=== PATIENT | female | born 1975 | race Caucasian/White ===

== ENCOUNTER → 2017-06-04 | Outpatient (CLI) | payer OTHER ==
[~2017-06-04] MED LIST: CONTRAST GIVEN MC
[2017-06-04] MEDS: IOHEXOL 240 MG/ML 50ML VIAL. PO (11:15)
[2017-06-04] MEDS: IOHEXOL 300 MG/ML 100ML VIAL. IV (11:15)
== END | disposition home or self-care (01) ==
LOC: CT 10:45
DX: K43.2 Incisional hernia without obstruction or gangrene (principal); K57.30 Diverticulosis of large intestine without perforation or abscess without bleeding; K76.0 Fatty (change of) liver, not elsewhere classified; J98.11 Atelectasis; N28.89 Other specified disorders of kidney and ureter; R16.0 Hepatomegaly, not elsewhere classified; Z90.49 Acquired absence of other specified parts of digestive tract; Z98.890 Other specified postprocedural states; Z90.710 Acquired absence of both cervix and uterus
CPT/HCPCS: 74177; Q9966; Q9967

== ENCOUNTER 2018-06-10 17:47 | Observation (INO) | payer OTHER ==
[~2018-06-10] VITALS: Ht 160 cm; Wt 103.1 kg
[~2018-06-10 17:47] MED LIST changes: +ACET325T9 PO; -CONTRAST GIVEN MC; +CYCL5TAB PO; +DOCU-109 PO; +ESOM40CA PO; +GABA800T5 PO; +HYDR-2761 PO; +LAMO100T5 PO; +LISD30CA5 PO; +OXYC1TAB15 PO; +PANT20TA2 PO; +POLY17PO29 PO; +PRAZ2CAP2 PO
[2018-06-10 19:56] LABS: BASO % 1 % (0-3); EOS # 0.1 x10^3/uL (0.0-0.7); EOS % 1 % (0-3); HEMATOCRIT 36.9 % (36.0-47.0); HEMOGLOBIN 12.4 g/dL (12.0-15.5); LYMPH % 33 % (24-48); MEAN CORPUSCULAR HEMOGLOBIN 31 pg (25-35); MEAN CORPUSCULAR HGB CONC 34 g/dL (31-37); MEAN CORPUSCULAR VOLUME 92 fL (79-100); MONO # 0.5 x10^3/uL (0.0-1.1); MONO % 6 % (0-9); NEUT # 5.4 x10^3uL (1.8-7.7); NEUT % 60 % (31-73); PLATELET COUNT 300 x10^3/uL (140-400); RED CELL DISTRIBUTION WIDTH 13.9 % (11.5-14.5); WHITE BLOOD COUNT 9.1 x10^3/uL (4.0-11.0)
[2018-06-10 19:57] LABS: BILIRUBIN,URINE NEGATIVE (NEG); CLARITY,URINE CLEAR; COLOR,URINE YELLOW; NITRITE,URINE POSITIVE (NEG); PH,URINE 6.5; PROTEIN,URINE NEGATIVE (NEG-TRACE)
[2018-06-10] MEDS ORDERED: fentaNYL PF VIAL 100 MCG/2 ML VIAL IV ONE ×2 (20:00→22:30)
[2018-06-10] MEDS ORDERED: ONDANSETRON PF 4 MG/2 ML VIAL. IV ONE (20:00)
[2018-06-10] MEDS ORDERED: IV NORMAL SALINE 1000ML BAG 1,000 ML IV ONE (20:00)
[2018-06-10 20:03] LABS: CALCIUM 8.8 mg/dL (8.5-10.1); CREATININE 0.8 mg/dL (0.6-1.0); GFR 78.7; POTASSIUM 3.8 mmol/L (3.5-5.1)
[2018-06-10 20:09] LABS: ALBUMIN 3.5 g/dL (3.4-5.0); MAGNESIUM 1.9 mg/dL (1.8-2.4); TOTAL BILIRUBIN 0.4 mg/dL (0.2-1.0); TOTAL PROTEIN 6.9 g/dL (6.4-8.2)
[2018-06-10 20:10] LABS: BACTERIA,URINE MANY /HPF (0-FEW); SQUAMOUS EPITHELIAL CELL,UR MOD /LPF
[2018-06-10 20:11] LABS: RBC,URINE OCC /HPF (0-2); WBC,URINE OCC /HPF (0-4)
[2018-06-10] MEDS ORDERED: CONTRAST GIVEN. MC PRN (20:45)
[2018-06-10] MEDS ORDERED: IOHEXOL 300 MG/ML 100ML VIAL. IV ONE (21:00)
--- NOTE | 2018-06-10 21:52 | RAD ---
CT study of the abdomen and pelvis with contrast Clinical indications: Hernia. History of gastric bypass. Possible small bowel obstruction. TECHNIQUE: After IV infusion of 75 cc of Omnipaque 300, helical CT scanning of the abdomen and pelvis was performed. No GI contrast was administered. This may decrease the sensitivity to detect GI tract pathology. PQRS compliance Statement One or more of the following individualized dose reduction techniques were utilized for this study: 1. Automated exposure control 2. Adjustment of the mA and/or kV according to patient size 3. Use of iterative reconstruction technique COMPARISON: June 04, 2017. FINDINGS: The liver and spleen and pancreas are unremarkable. The gallbladder is surgically absent. No extra hepatic biliary ductal dilatation is seen. No adrenal mass is evident. Both kidneys are normal without hydronephrosis or hydroureter. Urinary bladder is not abnormally distended. Uterus is surgically absent. No focal aneurysmal dilatation of the abdominal aorta is seen. No enlarged abdominal or pelvic lymphadenopathy is seen. Sigmoid diverticulosis is seen. There are 2 segmental areas of wall thickening of the sigmoid colon. The appendix is normal. The terminal ileum is unremarkable. No small bowel obstruction is evident. 2 abdominal wall hernias are seen. One is located within the midline superiorly and contains only fat and is not inflamed. It is unchanged in size from the previous study and measures about 8 cm in vertical length. There is a more prominent midline abdominal wall hernia more inferiorly above the level of the umbilicus. This measures 9.9 cm in vertical dimension. It measures 13.0 cm in transverse dimension and measures 5.7 cm in AP dimension. The size of the anterior abdominal wall defect is 3.5 cm vertically and 3.8 cm transversely. This hernia has increased in size. In addition, there is inflammatory change within the hernia sac and wall thickening of the peripheral sac. Findings are consistent with incarceration. No bowel loops are seen extending into the area. No abscess is seen. No free air or free fluid is seen. No lung base consolidation is seen. No lytic process is seen. IMPRESSION: 2 anterior abdominal wall hernias are seen. The more inferior hernia just above the level of the umbilicus of the midline has gotten larger since the previous study and now is inflamed consistent with incarceration. There 2 areas of segmental wall thickening of the sigmoid colon. This has been seen previously and may be secondary to muscle hypertrophy related to sigmoid diverticulosis. Recommend colonoscopy if this has not been performed recently to exclude a neoplastic process in this area. No pericolonic inflammatory change or free fluid or abscess is seen. Therefore there are no CT findings of diverticulitis.. Electronically signed by: Omega Sanchez MD (06/10/2018 9:49 PM) [facility]
--- NOTE | 2018-06-10 22:03 | PHYS DOC ---
Past Medical History Past Medical History: Anxiety, Bipolar, Depression, Endometriosis, Fibromyalgia Additional Past Medical Histor: ADHD, PTSD, HERNIAS Past Surgical History: Cholecystectomy, Hysterectomy, Tonsillectomy Additional Past Surgical Histo: Hernia repair, tummy tuck, FOREHEAD CYST, Alcohol Use: Rarely Drug Use: None Adult General Chief Complaint Chief Complaint: ABDOMINAL PAIN HPI HPI Patient is 42 yo female with hx of several abdominal surgeries who presents with complaint of pain at hernia site. Patient reports she noticed the pain around 2400 the night before when she was using the restroom. She was able to sleep but awoke with persistent pain. She describes the pain as a "burning twisting pain" that is worse with movement. She did not take any pain medication at home. She has not been able to pass gas or BM since the movement at 2400 the night before. Patient's primary care provider is Sri at [facility]. Of note, patient reports that she has had several ventral hernia repairs, and has been advised by at least 3 physicians (including surgeons at [facility]) that she "does not have enough fascia or capillaries" for proper healing of another hernia repair. Patient reports she feels "hopeless" about her hernia because of having had so many surgeons advise against another repair. She also reports that because of the hernia she is inactive and spends most of her time sitting or laying down to avoid worsening her hernia. Patient reports she has an abdominal binder and that although it helps support her hernia it does not improve the pain. Review of Systems Review of Systems Constitutional: Denies fever or chills [] Respiratory: Denies cough or shortness of breath [] Cardiovascular: Denies CP, denies palpitations GI: Denies nausea, vomiting, bloody diarrhea. Admits abdominal pain. Admits being able to pass gas. : Denies dysuria or hematuria [] Musculoskeletal: Denies back pain or joint pain [] Integument: Denies rash or skin lesions [] All other systems were reviewed and found to be within normal limits, except as documented in this note. Current Medications Current Medications Current Medications Medications (Trade) Dose Ordered Sig/Mary Start Time Stop Time Status Last Admin Dose Admin Fentanyl Citrate (Fentanyl 2ml Vial) 50 mcg 1X ONCE 06/10/18 22:30 06/10/18 22:31 DC 06/10/18 22:36 50 MCG Info (CONTRAST GIVEN -- Rx MONITORING) 1 each PRN DAILY PRN 06/10/18 20:45 06/12/18 20:44 Iohexol (Omnipaque 300 Mg/ml) 75 ml 1X ONCE 06/10/18 21:00 06/10/18 21:01 DC 06/10/18 20:53 75 ML Ondansetron HCl (Zofran) 4 mg 1X ONCE 06/10/18 20:00 06/10/18 20:01 DC 06/10/18 20:00 4 MG Sodium Chloride 1,000 ml @ 1,000 mls/hr 1X ONCE 06/10/18 20:00 06/10/18 20:59 DC 06/10/18 20:01 1,000 MLS/HR Allergies Allergies Allergies Coded Allergies Type Severity Reaction Last Updated Verified escitalopram Allergy Intermediate 04/08/17 Yes Physical Exam Physical Exam Constitutional: Well developed, well nourished, no acute distress, non-toxic appearance. [] HENT: Normocephalic, atraumatic Eyes: PERRLA, EOMI Neck: Normal range of motion, no tenderness, supple, no stridor. [] Cardiovascular:Heart rate regular rhythm, no murmur [] Lungs & Thorax: Bilateral breath sounds clear to auscultation [] Abdomen: Bowel sounds normal, soft, several well healed scars present. Midline, soft, reducible hernia present. Skin: Warm, dry, no erythema, no rash. [] Current Patient Data Vital Signs Vital Signs Date Time Temp Pulse Resp B/P (MAP) Pulse Ox O2 Delivery O2 Flow Rate FiO2 06/10/18 22:36 16 98 Room Air 06/10/18 22:30 84 177/114 (135) 06/10/18 18:30 97.8 97.8 Lab Values Laboratory Tests Test 06/10/18 18:55 06/10/18 19:00 Urine Collection Type Unknown Urine Color Yellow Urine Clarity Clear Urine pH 6.5 Urine Specific Henry 1.025 Urine Protein Negative mg/dL (NEG-TRACE) Urine Glucose (UA) Negative mg/dL (NEG) Urine Ketones (Stick) Negative mg/dL (NEG) Urine Blood Negative (NEG) Urine Nitrite Positive (NEG) Urine Bilirubin Negative (NEG) Urine Urobilinogen Dipstick 1.0 mg/dL (0.2 mg/dL) Urine Leukocyte Esterase Negative (NEG) Urine RBC Occ /HPF (0-2) Urine WBC Occ /HPF (0-4) Urine Squamous Epithelial Cells Mod /LPF Urine Bacteria Many /HPF (0-FEW) White Blood Count 9.1 x10^3/uL (4.0-11.0) Red Blood Count 4.00 x10^6/uL (3.50-5.40) Hemoglobin 12.4 g/dL (12.0-15.5) Hematocrit 36.9 % (36.0-47.0) Mean Corpuscular Volume 92 fL (79-100) Mean Corpuscular Hemoglobin 31 pg (25-35) Mean Corpuscular Hemoglobin Concent 34 g/dL (31-37) Red Cell Distribution Width 13.9 % (11.5-14.5) Platelet Count 300 x10^3/uL (140-400) Neutrophils (%) (Auto) 60 % (31-73) Lymphocytes (%) (Auto) 33 % (24-48) Monocytes (%) (Auto) 6 % (0-9) Eosinophils (%) (Auto) 1 % (0-3) Basophils (%) (Auto) 1 % (0-3) Neutrophils # (Auto) 5.4 x10^3uL (1.8-7.7) Lymphocytes # (Auto) 3.0 x10^3/uL (1.0-4.8) Monocytes # (Auto) 0.5 x10^3/uL (0.0-1.1) Eosinophils # (Auto) 0.1 x10^3/uL (0.0-0.7) Basophils # (Auto) 0.0 x10^3/uL (0.0-0.2) Sodium Level 141 mmol/L (136-145) Potassium Level 3.8 mmol/L (3.5-5.1) Chloride Level 105 mmol/L (98-107) Carbon Dioxide Level 26 mmol/L (21-32) Anion Gap 10 (6-14) Blood Urea Nitrogen 14 mg/dL (7-20) Creatinine 0.8 mg/dL (0.6-1.0) Estimated GFR (Cockcroft-Gault) 78.7 BUN/Creatinine Ratio 18 (6-20) Glucose Level 153 mg/dL (70-99) H Calcium Level 8.8 mg/dL (8.5-10.1) Magnesium Level 1.9 mg/dL (1.8-2.4) Total Bilirubin 0.4 mg/dL (0.2-1.0) Aspartate Amino Transferase (AST) 16 U/L (15-37) Alanine Aminotransferase (ALT) 22 U/L (14-59) Alkaline Phosphatase 70 U/L (46-116) Total Protein 6.9 g/dL (6.4-8.2) Albumin 3.5 g/dL (3.4-5.0) Albumin/Globulin Ratio 1.0 (1.0-1.7) Lipase 99 U/L (73-393) Laboratory Tests 06/10/18 19:00 Laboratory Tests 06/10/18 19:00 EKG EKG [] Radiology/Procedures Radiology/Procedures [PROCEDURE: CT ABD PELV W/ IV CONTRST ONLY CT study of the abdomen and pelvis with contrast Clinical indications: Hernia. History of gastric bypass. Possible small bowel obstruction. TECHNIQUE: After IV infusion of 75 cc of Omnipaque 300, helical CT scanning of the abdomen and pelvis was performed. No GI contrast was administered. This may decrease the sensitivity to detect GI tract pathology. PQRS compliance Statement One or more of the following individualized dose reduction techniques were utilized for this study: 1. Automated exposure control 2. Adjustment of the mA and/or kV according to patient size 3. Use of iterative reconstruction technique COMPARISON: June 04, 2017. FINDINGS: The liver and spleen and pancreas are unremarkable. The gallbladder is surgically absent. No extra hepatic biliary ductal dilatation is seen. No adrenal mass is evident. Both kidneys are normal without hydronephrosis or hydroureter. Urinary bladder is not abnormally distended. Uterus is surgically absent. No focal aneurysmal dilatation of the abdominal aorta is seen. No enlarged abdominal or pelvic lymphadenopathy is seen. Sigmoid diverticulosis is seen. There are 2 segmental areas of wall thickening of the sigmoid colon. The appendix is normal. The terminal ileum is unremarkable. No small bowel obstruction is evident. 2 abdominal wall hernias are seen. One is located within the midline superiorly and contains only fat and is not inflamed. It is unchanged in size from the previous study and measures about 8 cm in vertical length. There is a more prominent midline abdominal wall hernia more inferiorly above the level of the umbilicus. This measures 9.9 cm in vertical dimension. It measures 13.0 cm in transverse dimension and measures 5.7 cm in AP dimension. The size of the anterior abdominal wall defect is 3.5 cm vertically and 3.8 cm transversely. This hernia has increased in size. In addition, there is inflammatory change within the hernia sac and wall thickening of the peripheral sac. Findings are consistent with incarceration. No bowel loops are seen extending into the area. No abscess is seen. No free air or free fluid is seen. No lung base consolidation is seen. No lytic process is seen. IMPRESSION: 2 anterior abdominal wall hernias are seen. The more inferior hernia just above the level of the umbilicus of the midline has gotten larger since the previous study and now is inflamed consistent with incarceration. There 2 areas of segmental wall thickening of the sigmoid colon. This has been seen previously and may be secondary to muscle hypertrophy related to sigmoid diverticulosis. Recommend colonoscopy if this has not been performed recently to exclude a neoplastic process in this area. No pericolonic inflammatory change or free fluid or abscess is seen. Therefore there are no CT findings of diverticulitis.. Electronically signed by: Macarena Sanchez MD (06/10/2018 9:49 PM) [facility] DICTATED and SIGNED BY: MACARENA SANCHEZ MD DATE: 06/10/182148 ] Course & Med Decision Making Course & Med Decision Making Patient is a 42 yo female who presents with compliant of abdominal pain and worsening ventral hernia. Patient reports she has had the hernia for at least a year, although she noticed yesterday that she began having pain at the hernia site when she was using the restroom. On physical exam patient's vitals are WNL , with midline, soft, reducible ventral hernia. Patient reports she is very tender to palpation. Labs WNL. CT abdomen pelvis reveals no bowel in hernia, although hernia contains inflamed tissue consistent with incarceration. Discussed with Rogerio (surgery) patient's case and CT scan. Decided to admit patient for pain relief control and surgical evaluation. Patient admitted to hospitalist service for further evaluation. Discussed plan with patient and . Dragon Disclaimer Dragon Disclaimer This electronic medical record was generated, in whole or in part, using a voice recognition dictation system. Departure Departure Impression: Primary Impression: Hernia Disposition: ADMITTED INPATIENT Admitting Physician: Other Condition: STABLE Referrals: ELLEN NAVA MD (PCP) EVELIO BELLO MD Jun 10, 2018 22:03
[2018-06-10] MEDS: IV NORMAL SALINE 1000ML BAG 1,000 ML IV SCH (23:00)
[2018-06-10] MEDS ORDERED: ONDANSETRON PF 4 MG/2 ML VIAL. IV PRN (23:00)
[2018-06-10] MEDS: MORPHINE SULFATE 4 MG/ML VIAL. IV PRN (23:52)
[2018-06-11 00:30] VITALS: BP 154/91
[2018-06-11] MEDS ORDERED: BUSP10TA PO (01:59)
[2018-06-11] MEDS ORDERED: PANT40GR PO (01:59)
--- NOTE | 2018-06-11 02:00 | NUR ---
Pt arrived via wheelchair from ER at 1240, stable, alert x4, reporting no pain. vitals taken, WNL. Will continue to monitor. Medications have been updated under reconcile meds tab
[2018-06-11 03:00] VITALS: BP 158/83
[2018-06-11] MEDS: MORPHINE SULFATE 4 MG/ML VIAL. IV PRN (03:02)
[2018-06-11] MEDS ORDERED: diphenhydrAMINE 50 MG/ML VIAL IVP PRN (04:00)
[2018-06-11] MEDS ORDERED: PROCHLORPERAZINE 10 MG/2 ML VIAL. IV PRN (04:00)
[2018-06-11 05:57] LABS: BASO # 0.1 x10^3/uL (0.0-0.2); BASO % 1 % (0-3); EOS # 0.1 x10^3/uL (0.0-0.7); EOS % 2 % (0-3); HEMATOCRIT 34.2 % (36.0-47.0); HEMOGLOBIN 11.5 g/dL (12.0-15.5); LYMPH # 2.7 x10^3/uL (1.0-4.8); LYMPH % 33 % (24-48); MEAN CORPUSCULAR HEMOGLOBIN 31 pg (25-35); MEAN CORPUSCULAR HGB CONC 34 g/dL (31-37); MEAN CORPUSCULAR VOLUME 92 fL (79-100); MONO # 0.5 x10^3/uL (0.0-1.1); MONO % 6 % (0-9); NEUT # 4.8 x10^3uL (1.8-7.7); NEUT % 59 % (31-73); PLATELET COUNT 252 x10^3/uL (140-400); RED BLOOD COUNT 3.72 x10^6/uL (3.50-5.40); RED CELL DISTRIBUTION WIDTH 13.8 % (11.5-14.5); WHITE BLOOD COUNT 8.1 x10^3/uL (4.0-11.0)
[2018-06-11 07:00] VITALS: BP 125/74
--- NOTE | 2018-06-11 08:45 | PDOC1 ---
History and Physical Date of Admission Date of Admission DATE: 06/11/18 TIME: 08:44 Identification/Chief Complaint Chief Complaint Abdominal pain Source Source: Patient History of Present Illness History of Present Illness Anastasiia is a 42 yo female with PMHx of morbid obesity s/p gastric bypass, fibromyalgia, bipolar disorder with multiple previous abdominal surgeries who presented to the ED last night, 06/10/18 with intractable pain in her long standing ventral incisional hernia that was not reducible in the ED. She had accompanying nausea and could not hold food down, required IV nausea and pain medication initially. She feels better this AM after manual hernia reduction by general surgery, feels back to her baseline. She tells me her (in the recliner) is frustrated, and he does share his frustration with the medical system. 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 Her pain is 3/10 currently and she is asking for diet and to be discharged since her hernia has been manually reduced by surgery. Past Medical History Cardiovascular: No pertinent hx Pulmonary: No pertinent hx GI: Other (Ventral hernia, s/p gastric bypass) Heme/Onc: No pertinent hx Hepatobiliary: No pertinent hx Psych: Bipolar Rheumatologic: Fibromyalgia Infectious disease: No pertinent hx ENT: No pertinent hx Renal/: No pertinent hx Endocrine: No pertinent hx Dermatology: No pertinent hx Past Surgical History Past Surgical History: Hernia Repair, Other (Gastric bypass) Family History Family History: Depression, Hypertension Social History Smoke: No ALCOHOL: none Drugs: None Current Medications Current Medications Current Medications Sodium Chloride 1,000 ml @ 1,000 mls/hr 1X ONCE IV Last administered on at 20:01; Start 06/10/18 at 20:00; Stop 06/10/18 at 20:59; Status DC Ondansetron HCl (Zofran) 4 mg 1X ONCE IV Last administered on 06/10/18at 20:00; Start 06/10/18 at 20:00; Stop 06/10/18 at 20:01; Status DC Fentanyl Citrate (Fentanyl 2ml Vial) 50 mcg 1X ONCE IV Last administered on 06/10/18at 20:00; Start 06/10/18 at 20:00; Stop 06/10/18 at 20:01; Status DC Iohexol (Omnipaque 300 Mg/ml) 75 ml 1X ONCE IV Last administered on 06/10/18at 20:53; Start 06/10/18 at 21:00; Stop 06/10/18 at 21:01; Status DC Info (CONTRAST GIVEN -- Rx MONITORING) 1 each PRN DAILY PRN MC SEE COMMENTS; Start 06/10/18 at 20:45; Stop 06/12/18 at 20:44 Fentanyl Citrate (Fentanyl 2ml Vial) 50 mcg 1X ONCE IV Last administered on 06/10/18at 22:36; Start 06/10/18 at 22:30; Stop 06/10/18 at 22:31; Status DC Ondansetron HCl (Zofran) 4 mg PRN Q8HRS PRN IV NAUSEA/VOMITING Last administered on 06/11/18at 03:05; Start 06/10/18 at 23:00; Stop 06/11/18 at 22:59 Morphine Sulfate (Morphine Sulfate) 4 mg PRN Q2HR PRN IV PAIN Last administered on 06/11/18at 03:02; Start 06/10/18 at 23:00; Stop 06/11/18 at 22:59 Sodium Chloride 1,000 ml @ 100 mls/hr Q10H IV Last administered on 06/10/18at 23 :00; Start 06/10/18 at 23:00; Stop 06/11/18 at 22:59 Prochlorperazine Edisylate (Compazine) 10 mg PRN Q6HRS PRN IV NAUSEA/VOMITING Last administered on 06/11/18at 04:19; Start 06/11/18 at 04:00 Diphenhydramine HCl (Benadryl) 25 mg PRN Q6HRS PRN IVP ITCHING; Start 06/11/18 at 04:00 Influenza Virus Vaccine (Afluria Trivalent [id number] Syringe) 0.5 ml ONCE ONCE VAX IM ; Start 06/11/18 at 12:00; Stop 06/11/18 at 12:01 Active Scripts Active Reported Buspirone Hcl 10 Mg Tablet 7.5 Mg PO BID Protonix (Pantoprazole Sodium) 40 Mg Granpkt.dr 40 Mg PO DAILY Hydrocodone-Apap 5-325 (Hydrocodone Bit/Acetaminophen) 1 Each Tablet 1 Tab PO PRN Q6HRS PRN Colace (Docusate Sodium) 100 Mg Capsule 1 Cap PO BID Cyclobenzaprine Hcl 5 Mg Tablet 1 Tab PO TID Miralax (Polyethylene Glycol 3350) 17 Gm Powd.pack 1 Packet PO DAILY Gabapentin 800 Mg Tablet 800 Mg PO TID Allergies Allergies: Coded Allergies: Penicillins (Verified Allergy, Severe, Anaphylaxis, 06/11/18) escitalopram (Verified Allergy, Intermediate, 04/08/17) tramadol (Verified Allergy, Intermediate, Rash, 06/11/18) bupropion (Verified Adverse Reaction, Severe, 06/11/18) Confusion fluoxetine (Verified Adverse Reaction, Intermediate, 06/11/18) confusion, aggression ROS General: YES: Fatigue, Malaise; No: Chills, Night Sweats, Appetite, Other PSYCHOLOGICAL ROS: YES: Anxiety, Irritablity; No: Behavioral Disorder, Concentration difficultie, Decreased libido, Depression, Disorientation, Hallucinations, Hostility, Memory difficulties, Mood Swings, Obsessive thoughts, Physical abuse, Sexual abuse, Sleep disturbances, Suicidal ideation, Other Eyes: No Blurry vision, No Decreased vision, No Double vision, No Dry eyes, No Excessive tearing, No Eye Pain, No Itchy Eyes, No Loss of vision, No Photophobia , No Scotomata, No Uses contacts, No Uses glasses, No Other HEENT: No: Heacaches, Visual Changes, Hearing change, Nasal congestion, Nasal discharge, Oral lesions, Sinus pain, Sore Throat, Epistaxis, Sneezing, Snoring, Tinnitus, Vertigo, Vocal changes, Other ALLERGY AND IMMUNOLOGY: No: Hives, Insect Bite Sensitivity, Itchy/Watery Eyes, Nasal Congestion, Post Nasal Drip, Seasonal Allergies, Other Hematological and Lymphatic: No: Bleeding Problems, Blood Clots, Blood Transfusions, Brusing, Night Sweats, Pallor, Swollen Lymph Nodes, Other ENDOCRINE: No: Breast Changes, Galactorrhea, Hair Pattern Changes, Hot Flashes , Malaise/lethargy, Mood Swings, Palpitations, Polydipsia/polyuria, Skin Changes , Temperature Intolerance, Unexpected Weight Changes, Other Breast: No New/Changing Breast Lumps, No Nipple changes, No Nipple discharge, No Other Respiratory: No: Cough, Hemoptysis, Orthopnea, Pleuritic Pain, Shortness of breath, SOB with excertion, Sputum Changes, Stridor, Tachypnea, Wheezing, Other Cardiovascular: No Chest Pain, No Palpitations, No Orthopnea, No Paroxysmal Noc. Dyspnea, No Edema, No Lt Headedness, No Other Gastrointestinal: Yes Nausea, Yes Abdominal Pain; No Vomiting, No Diarrhea, No Constipation, No Melena, No Hematochezia, No Other Genitourinary: No Dysuria, No Frequency, No Incontinence, No Hematuria, No Retention, No Discharge, No Urgency, No Pain, No Flank Pain, No Other, No , No , No , No , No , No , No Musculoskeletal: No Gait Disturbance, No Joint Pain, No Joint Stiffness, No Joint Swelling, No Muscle Pain, No Muscular Weakness, No Pain In:, No Swelling In:, No Other Neurological: No Behavorial Changes, No Bowel/Bladder ControlChng, No Confusion , No Dizziness, No Gait Disturbance, No Headaches, No Impaired Coord/balance, No Memory Loss, No Numbness/Tingling, No Seizures, No Speech Problems, No Tremors, No Visual Changes, No Weakness, No Other Skin: No Dry Skin, No Eczema, No Hair Changes, No Lumps, No Mole Changes, No Mottling, No Nail Changes, No Pruritus, No Rash, No Skin Lesion Changes, No Other, No Acne Physical Exam General: Alert, Oriented X3, Cooperative, No acute distress HEENT: Atraumatic, PERRLA, EOMI, Mucous membr. moist/pink Lungs: Clear to auscultation, Normal air movement Heart: S1S2, RRR, no gallops, no murmurs Abdomen: Normal bowel sounds, Soft, No hepatosplenomegaly, No masses, Other ( Midline tender, very large reducible ventral hernia. Scarring midline sternum to pelvis) Rectal Exam: not examined Extremities: No clubbing, No cyanosis, No edema, Normal pulses, No tenderness/ swelling Skin: No rashes, No breakdown, No significant lesion Neuro: Normal gait, Normal speech, Strength at 5/5 X4 ext, Normal tone, Sensation intact, Cranial nerves 3-12 NL, Reflexes 2+ Psych/Mental Status: Mental status NL, Mood NL Vitals Vitals Vital Signs Date Time Temp Pulse Resp B/P (MAP) Pulse Ox O2 Delivery O2 Flow Rate FiO2 06/11/18 04:02 96 Room Air 06/11/18 03:00 98.6 73 18 158/83 (108) 98.6 Labs Labs Laboratory Tests Test 06/10/18 18:55 06/10/18 19:00 06/11/18 05:15 Urine Collection Type Unknown Urine Color Yellow Urine Clarity Clear Urine pH 6.5 Urine Specific Haskell 1.025 Urine Protein Negative mg/dL (NEG-TRACE) Urine Glucose (UA) Negative mg/dL (NEG) Urine Ketones (Stick) Negative mg/dL (NEG) Urine Blood Negative (NEG) Urine Nitrite Positive (NEG) Urine Bilirubin Negative (NEG) Urine Urobilinogen Dipstick 1.0 mg/dL (0.2 mg/dL) Urine Leukocyte Esterase Negative (NEG) Urine RBC Occ /HPF (0-2) Urine WBC Occ /HPF (0-4) Urine Squamous Epithelial Cells Mod /LPF Urine Bacteria Many /HPF (0-FEW) White Blood Count 9.1 x10^3/uL (4.0-11.0) 8.1 x10^3/uL (4.0-11.0) Red Blood Count 4.00 x10^6/uL (3.50-5.40) 3.72 x10^6/uL (3.50-5.40) Hemoglobin 12.4 g/dL (12.0-15.5) 11.5 g/dL (12.0-15.5) Hematocrit 36.9 % (36.0-47.0) 34.2 % (36.0-47.0) Mean Corpuscular Volume 92 fL (79-100) 92 fL (79-100) Mean Corpuscular Hemoglobin 31 pg (25-35) 31 pg (25-35) Mean Corpuscular Hemoglobin Concent 34 g/dL (31-37) 34 g/dL (31-37) Red Cell Distribution Width 13.9 % (11.5-14.5) 13.8 % (11.5-14.5) Platelet Count 300 x10^3/uL (140-400) 252 x10^3/uL (140-400) Neutrophils (%) (Auto) 60 % (31-73) 59 % (31-73) Lymphocytes (%) (Auto) 33 % (24-48) 33 % (24-48) Monocytes (%) (Auto) 6 % (0-9) 6 % (0-9) Eosinophils (%) (Auto) 1 % (0-3) 2 % (0-3) Basophils (%) (Auto) 1 % (0-3) 1 % (0-3) Neutrophils # (Auto) 5.4 x10^3uL (1.8-7.7) 4.8 x10^3uL (1.8-7.7) Lymphocytes # (Auto) 3.0 x10^3/uL (1.0-4.8) 2.7 x10^3/uL (1.0-4.8) Monocytes # (Auto) 0.5 x10^3/uL (0.0-1.1) 0.5 x10^3/uL (0.0-1.1) Eosinophils # (Auto) 0.1 x10^3/uL (0.0-0.7) 0.1 x10^3/uL (0.0-0.7) Basophils # (Auto) 0.0 x10^3/uL (0.0-0.2) 0.1 x10^3/uL (0.0-0.2) Sodium Level 141 mmol/L (136-145) Potassium Level 3.8 mmol/L (3.5-5.1) Chloride Level 105 mmol/L (98-107) Carbon Dioxide Level 26 mmol/L (21-32) Anion Gap 10 (6-14) Blood Urea Nitrogen 14 mg/dL (7-20) Creatinine 0.8 mg/dL (0.6-1.0) Estimated GFR (Cockcroft-Gault) 78.7 BUN/Creatinine Ratio 18 (6-20) Glucose Level 153 mg/dL (70-99) Calcium Level 8.8 mg/dL (8.5-10.1) Magnesium Level 1.9 mg/dL (1.8-2.4) Total Bilirubin 0.4 mg/dL (0.2-1.0) Aspartate Amino Transf (AST/SGOT) 16 U/L (15-37) Alanine Aminotransferase (ALT/SGPT) 22 U/L (14-59) Alkaline Phosphatase 70 U/L (46-116) Total Protein 6.9 g/dL (6.4-8.2) Albumin 3.5 g/dL (3.4-5.0) Albumin/Globulin Ratio 1.0 (1.0-1.7) Lipase 99 U/L (73-393) Laboratory Tests Test 06/10/18 18:55 06/10/18 19:00 06/11/18 05:15 Urine Collection Type Unknown Urine Color Yellow Urine Clarity Clear Urine pH 6.5 Urine Specific Haskell 1.025 Urine Protein Negative mg/dL (NEG-TRACE) Urine Glucose (UA) Negative mg/dL (NEG) Urine Ketones (Stick) Negative mg/dL (NEG) Urine Blood Negative (NEG) Urine Nitrite Positive (NEG) Urine Bilirubin Negative (NEG) Urine Urobilinogen Dipstick 1.0 mg/dL (0.2 mg/dL) Urine Leukocyte Esterase Negative (NEG) Urine RBC Occ /HPF (0-2) Urine WBC Occ /HPF (0-4) Urine Squamous Epithelial Cells Mod /LPF Urine Bacteria Many /HPF (0-FEW) White Blood Count 9.1 x10^3/uL (4.0-11.0) 8.1 x10^3/uL (4.0-11.0) Red Blood Count 4.00 x10^6/uL (3.50-5.40) 3.72 x10^6/uL (3.50-5.40) Hemoglobin 12.4 g/dL (12.0-15.5) 11.5 g/dL (12.0-15.5) Hematocrit 36.9 % (36.0-47.0) 34.2 % (36.0-47.0) Mean Corpuscular Volume 92 fL (79-100) 92 fL (79-100) Mean Corpuscular Hemoglobin 31 pg (25-35) 31 pg (25-35) Mean Corpuscular Hemoglobin Concent 34 g/dL (31-37) 34 g/dL (31-37) Red Cell Distribution Width 13.9 % (11.5-14.5) 13.8 % (11.5-14.5) Platelet Count 300 x10^3/uL (140-400) 252 x10^3/uL (140-400) Neutrophils (%) (Auto) 60 % (31-73) 59 % (31-73) Lymphocytes (%) (Auto) 33 % (24-48) 33 % (24-48) Monocytes (%) (Auto) 6 % (0-9) 6 % (0-9) Eosinophils (%) (Auto) 1 % (0-3) 2 % (0-3) Basophils (%) (Auto) 1 % (0-3) 1 % (0-3) Neutrophils # (Auto) 5.4 x10^3uL (1.8-7.7) 4.8 x10^3uL (1.8-7.7) Lymphocytes # (Auto) 3.0 x10^3/uL (1.0-4.8) 2.7 x10^3/uL (1.0-4.8) Monocytes # (Auto) 0.5 x10^3/uL (0.0-1.1) 0.5 x10^3/uL (0.0-1.1) Eosinophils # (Auto) 0.1 x10^3/uL (0.0-0.7) 0.1 x10^3/uL (0.0-0.7) Basophils # (Auto) 0.0 x10^3/uL (0.0-0.2) 0.1 x10^3/uL (0.0-0.2) Sodium Level 141 mmol/L (136-145) Potassium Level 3.8 mmol/L (3.5-5.1) Chloride Level 105 mmol/L (98-107) Carbon Dioxide Level 26 mmol/L (21-32) Anion Gap 10 (6-14) Blood Urea Nitrogen 14 mg/dL (7-20) Creatinine 0.8 mg/dL (0.6-1.0) Estimated GFR (Cockcroft-Gault) 78.7 BUN/Creatinine Ratio 18 (6-20) Glucose Level 153 mg/dL (70-99) Calcium Level 8.8 mg/dL (8.5-10.1) Magnesium Level 1.9 mg/dL (1.8-2.4) Total Bilirubin 0.4 mg/dL (0.2-1.0) Aspartate Amino Transf (AST/SGOT) 16 U/L (15-37) Alanine Aminotransferase (ALT/SGPT) 22 U/L (14-59) Alkaline Phosphatase 70 U/L (46-116) Total Protein 6.9 g/dL (6.4-8.2) Albumin 3.5 g/dL (3.4-5.0) Albumin/Globulin Ratio 1.0 (1.0-1.7) Lipase 99 U/L (73-393) Images Images CT abd/pelv 2 anterior abdominal wall hernias are seen. The more inferior hernia just above the level of the umbilicus of the midline has gotten larger since the previous study and now is inflamed consistent with incarceration. There 2 areas of segmental wall thickening of the sigmoid colon. This has been seen previously and may be secondary to muscle hypertrophy related to sigmoid diverticulosis. Recommend colonoscopy if this has not been performed recently to exclude a neoplastic process in this area. No pericolonic inflammatory change or free fluid or abscess is seen. Therefore there are no CT findings of diverticulitis.. VTE Prophylaxis Ordered VTE Prophylaxis Devices: Yes VTE Pharmacological Prophylaxi: No Assessment/Plan Assessment/Plan A/P: Intractable abdominal pain with nausea and vomiting - was unable to take PO or control her pain at home, improved with IV over the first 24 hours and manual reduction of hernia by surgery bedside has temporized while she awaits ultimate treatment at [facility] after her weight loss Incarcerated ventral hernia - thankfully was reduced bedside currently Morbid obesity s/p gastric bypass - has been advised an additional 20 pounds weight loss. I have recommend aquatic therapy outpatient for her Fibromyalgia and abdominal wall weakness and Liraglutide, contrave (does have h/o problems with wellbutrin), topiramate and even metformin in conjunction with a graded exercise program and dietary modification to mediterranean style diet, portion control Fibromyalgia - cont gabapentin, recommended to get off opioids, she actually rarely take the hydrocodone Bipolar disorder - states she is not currently medicated. A weight neutral med like geodon or even lithium may help mood stabilize so that she can be more functional. She will cont psych f/u Multiple previous abdominal surgeries - has f/u at [facility] and [facility] [place] FEN - Full liquid diet PPX - SCDs FULL CODE Inpatient as she was unable to take PO and required IV pain medications. Surprisingly, her hernia was able to be reduced bedside and she wishes for discharge. HUMAIRA OSEGUERA MD Jun 11, 2018 08:45
[2018-06-11] MEDS: IV NORMAL SALINE 1000ML BAG 1,000 ML IV SCH (09:00)
--- NOTE | 2018-06-11 09:50 | PDOC2 ---
CONSULT Date of Consult Date of Consult DATE: 06/11/18 TIME: 09:34 Reason for Consult Reason for Consult: ventral incisional hernia Referring Physician Referring Physician: IPC Identification/Chief Complaint Chief Complaint abdominal pain Source Source: Chart review, Patient History of Present Illness Reason for Visit: Anastasiia is a 42 yo obese female with multiple previous abdominal surgeries who presented to the ED last noc with some tenderness in her long standing ventral incisional hernia. She feels better this AM (feels like it usually does) and had asked to go home from the ED last noc. It was recommended she stay so she did. She is sitting up in bed, was on the phone when I came in. She tells me her (in the recliner) is frustrated. I ask him what he was frustrated about, and he responded "the system". Anastasiia had been evaluated previously by Dr Austin, referred to [facility], then on to [facility] for evaluation as a candidate for a component separation procedure due to the size of her hernias and poor abdominal wall integrity. She was asked to loose weight (has already had a gastric bypass) and return. She has not been back to the hernia clinic recently. Past Medical History Cardiovascular: No pertinent hx Pulmonary: No pertinent hx Psych: Anxiety, Bipolar, Depression, Other (ADHD) Musculoskeletal: Other (fibromyalgia) Past Surgical History Past Surgical History: Cholecystectomy, Hernia Repair (MULTIPLE, abdomenoplasty ), Tonsillectomy Family History Family History: No Significant Social History No ALCOHOL: rare Drugs: None Lives: with Family Current Medications Current Medications Current Medications Sodium Chloride 1,000 ml @ 1,000 mls/hr 1X ONCE IV Last administered on at 20:01; Start 06/10/18 at 20:00; Stop 06/10/18 at 20:59; Status DC Ondansetron HCl (Zofran) 4 mg 1X ONCE IV Last administered on 06/10/18 20:00; Start 06/10/18 at 20:00; Stop 06/10/18 at 20:01; Status DC Fentanyl Citrate (Fentanyl 2ml Vial) 50 mcg 1X ONCE IV Last administered on 20:00; Start 06/10/18 at 20:00; Stop 06/10/18 at 20:01; Status DC Iohexol (Omnipaque 300 Mg/ml) 75 ml 1X ONCE IV Last administered on 3/8/19at 20:53; Start 06/10/18 at 21:00; Stop 06/10/18 at 21:01; Status DC Info (CONTRAST GIVEN -- Rx MONITORING) 1 each PRN DAILY PRN MC SEE COMMENTS; Start 06/10/18 at 20:45; Stop 06/12/18 at 20:44 Fentanyl Citrate (Fentanyl 2ml Vial) 50 mcg 1X ONCE IV Last administered on 06/10/18at 22:36; Start 06/10/18 at 22:30; Stop 06/10/18 at 22:31; Status DC Ondansetron HCl (Zofran) 4 mg PRN Q8HRS PRN IV NAUSEA/VOMITING Last administered on 06/11/18at 03:05; Start 06/10/18 at 23:00; Stop 06/11/18 at 22:59 Morphine Sulfate (Morphine Sulfate) 4 mg PRN Q2HR PRN IV PAIN Last administered on 06/11/18at 03:02; Start 06/10/18 at 23:00; Stop 06/11/18 at 22:59 Sodium Chloride 1,000 ml @ 100 mls/hr Q10H IV Last administered on 06/10/18at 23 :00; Start 06/10/18 at 23:00; Stop 06/11/18 at 22:59 Prochlorperazine Edisylate (Compazine) 10 mg PRN Q6HRS PRN IV NAUSEA/VOMITING Last administered on 06/11/18at 04:19; Start 06/11/18 at 04:00 Diphenhydramine HCl (Benadryl) 25 mg PRN Q6HRS PRN IVP ITCHING; Start 06/11/18 at 04:00 Influenza Virus Vaccine (Afluria Trivalent [id number] Syringe) 0.5 ml ONCE ONCE VAX IM ; Start 06/11/18 at 12:00; Stop 06/11/18 at 12:01 Active Scripts Active Reported Buspirone Hcl 10 Mg Tablet 7.5 Mg PO BID Protonix (Pantoprazole Sodium) 40 Mg Granpkt.dr 40 Mg PO DAILY Hydrocodone-Apap 5-325 (Hydrocodone Bit/Acetaminophen) 1 Each Tablet 1 Tab PO PRN Q6HRS PRN Colace (Docusate Sodium) 100 Mg Capsule 1 Cap PO BID Cyclobenzaprine Hcl 5 Mg Tablet 1 Tab PO TID Miralax (Polyethylene Glycol 3350) 17 Gm Powd.pack 1 Packet PO DAILY Gabapentin 800 Mg Tablet 800 Mg PO TID Allergies Allergies: Coded Allergies: Penicillins (Verified Allergy, Severe, Anaphylaxis, 06/11/18) escitalopram (Verified Allergy, Intermediate, 04/08/17) tramadol (Verified Allergy, Intermediate, Rash, 06/11/18) bupropion (Verified Adverse Reaction, Severe, 06/11/18) Confusion fluoxetine (Verified Adverse Reaction, Intermediate, 06/11/18) confusion, aggression ROS Review of System negative with exception of current complaints Physical Exam General: Alert, Oriented X3, Cooperative, No acute distress HEENT: Atraumatic Lungs: Normal air movement Heart: Regular rate Abdomen: Other (obese, soft, well healed midline incisional scar, fullness in epigastrium and larger fullness mid scar that is not reducible) Vitals VITALS Vital Signs Date Time Temp Pulse Resp B/P (MAP) Pulse Ox O2 Delivery O2 Flow Rate FiO2 06/11/18 07:00 98.8 77 18 125/74 (91) 100 Room Air 98.8 Labs Labs Laboratory Tests Test 06/10/18 18:55 06/10/18 19:00 06/11/18 05:15 Urine Collection Type Unknown Urine Color Yellow Urine Clarity Clear Urine pH 6.5 Urine Specific [place] 1.025 Urine Protein Negative mg/dL (NEG-TRACE) Urine Glucose (UA) Negative mg/dL (NEG) Urine Ketones (Stick) Negative mg/dL (NEG) Urine Blood Negative (NEG) Urine Nitrite Positive (NEG) Urine Bilirubin Negative (NEG) Urine Urobilinogen Dipstick 1.0 mg/dL (0.2 mg/dL) Urine Leukocyte Esterase Negative (NEG) Urine RBC Occ /HPF (0-2) Urine WBC Occ /HPF (0-4) Urine Squamous Epithelial Cells Mod /LPF Urine Bacteria Many /HPF (0-FEW) White Blood Count 9.1 x10^3/uL (4.0-11.0) 8.1 x10^3/uL (4.0-11.0) Red Blood Count 4.00 x10^6/uL (3.50-5.40) 3.72 x10^6/uL (3.50-5.40) Hemoglobin 12.4 g/dL (12.0-15.5) 11.5 g/dL (12.0-15.5) Hematocrit 36.9 % (36.0-47.0) 34.2 % (36.0-47.0) Mean Corpuscular Volume 92 fL (79-100) 92 fL (79-100) Mean Corpuscular Hemoglobin 31 pg (25-35) 31 pg (25-35) Mean Corpuscular Hemoglobin Concent 34 g/dL (31-37) 34 g/dL (31-37) Red Cell Distribution Width 13.9 % (11.5-14.5) 13.8 % (11.5-14.5) Platelet Count 300 x10^3/uL (140-400) 252 x10^3/uL (140-400) Neutrophils (%) (Auto) 60 % (31-73) 59 % (31-73) Lymphocytes (%) (Auto) 33 % (24-48) 33 % (24-48) Monocytes (%) (Auto) 6 % (0-9) 6 % (0-9) Eosinophils (%) (Auto) 1 % (0-3) 2 % (0-3) Basophils (%) (Auto) 1 % (0-3) 1 % (0-3) Neutrophils # (Auto) 5.4 x10^3uL (1.8-7.7) 4.8 x10^3uL (1.8-7.7) Lymphocytes # (Auto) 3.0 x10^3/uL (1.0-4.8) 2.7 x10^3/uL (1.0-4.8) Monocytes # (Auto) 0.5 x10^3/uL (0.0-1.1) 0.5 x10^3/uL (0.0-1.1) Eosinophils # (Auto) 0.1 x10^3/uL (0.0-0.7) 0.1 x10^3/uL (0.0-0.7) Basophils # (Auto) 0.0 x10^3/uL (0.0-0.2) 0.1 x10^3/uL (0.0-0.2) Sodium Level 141 mmol/L (136-145) Potassium Level 3.8 mmol/L (3.5-5.1) Chloride Level 105 mmol/L (98-107) Carbon Dioxide Level 26 mmol/L (21-32) Anion Gap 10 (6-14) Blood Urea Nitrogen 14 mg/dL (7-20) Creatinine 0.8 mg/dL (0.6-1.0) Estimated GFR (Cockcroft-Gault) 78.7 BUN/Creatinine Ratio 18 (6-20) Glucose Level 153 mg/dL (70-99) Calcium Level 8.8 mg/dL (8.5-10.1) Magnesium Level 1.9 mg/dL (1.8-2.4) Total Bilirubin 0.4 mg/dL (0.2-1.0) Aspartate Amino Transf (AST/SGOT) 16 U/L (15-37) Alanine Aminotransferase (ALT/SGPT) 22 U/L (14-59) Alkaline Phosphatase 70 U/L (46-116) Total Protein 6.9 g/dL (6.4-8.2) Albumin 3.5 g/dL (3.4-5.0) Albumin/Globulin Ratio 1.0 (1.0-1.7) Lipase 99 U/L (73-393) Laboratory Tests Test 06/10/18 18:55 06/10/18 19:00 06/11/18 05:15 Urine Collection Type Unknown Urine Color Yellow Urine Clarity Clear Urine pH 6.5 Urine Specific [place] 1.025 Urine Protein Negative mg/dL (NEG-TRACE) Urine Glucose (UA) Negative mg/dL (NEG) Urine Ketones (Stick) Negative mg/dL (NEG) Urine Blood Negative (NEG) Urine Nitrite Positive (NEG) Urine Bilirubin Negative (NEG) Urine Urobilinogen Dipstick 1.0 mg/dL (0.2 mg/dL) Urine Leukocyte Esterase Negative (NEG) Urine RBC Occ /HPF (0-2) Urine WBC Occ /HPF (0-4) Urine Squamous Epithelial Cells Mod /LPF Urine Bacteria Many /HPF (0-FEW) White Blood Count 9.1 x10^3/uL (4.0-11.0) 8.1 x10^3/uL (4.0-11.0) Red Blood Count 4.00 x10^6/uL (3.50-5.40) 3.72 x10^6/uL (3.50-5.40) Hemoglobin 12.4 g/dL (12.0-15.5) 11.5 g/dL (12.0-15.5) Hematocrit 36.9 % (36.0-47.0) 34.2 % (36.0-47.0) Mean Corpuscular Volume 92 fL (79-100) 92 fL (79-100) Mean Corpuscular Hemoglobin 31 pg (25-35) 31 pg (25-35) Mean Corpuscular Hemoglobin Concent 34 g/dL (31-37) 34 g/dL (31-37) Red Cell Distribution Width 13.9 % (11.5-14.5) 13.8 % (11.5-14.5) Platelet Count 300 x10^3/uL (140-400) 252 x10^3/uL (140-400) Neutrophils (%) (Auto) 60 % (31-73) 59 % (31-73) Lymphocytes (%) (Auto) 33 % (24-48) 33 % (24-48) Monocytes (%) (Auto) 6 % (0-9) 6 % (0-9) Eosinophils (%) (Auto) 1 % (0-3) 2 % (0-3) Basophils (%) (Auto) 1 % (0-3) 1 % (0-3) Neutrophils # (Auto) 5.4 x10^3uL (1.8-7.7) 4.8 x10^3uL (1.8-7.7) Lymphocytes # (Auto) 3.0 x10^3/uL (1.0-4.8) 2.7 x10^3/uL (1.0-4.8) Monocytes # (Auto) 0.5 x10^3/uL (0.0-1.1) 0.5 x10^3/uL (0.0-1.1) Eosinophils # (Auto) 0.1 x10^3/uL (0.0-0.7) 0.1 x10^3/uL (0.0-0.7) Basophils # (Auto) 0.0 x10^3/uL (0.0-0.2) 0.1 x10^3/uL (0.0-0.2) Sodium Level 141 mmol/L (136-145) Potassium Level 3.8 mmol/L (3.5-5.1) Chloride Level 105 mmol/L (98-107) Carbon Dioxide Level 26 mmol/L (21-32) Anion Gap 10 (6-14) Blood Urea Nitrogen 14 mg/dL (7-20) Creatinine 0.8 mg/dL (0.6-1.0) Estimated GFR (Cockcroft-Gault) 78.7 BUN/Creatinine Ratio 18 (6-20) Glucose Level 153 mg/dL (70-99) Calcium Level 8.8 mg/dL (8.5-10.1) Magnesium Level 1.9 mg/dL (1.8-2.4) Total Bilirubin 0.4 mg/dL (0.2-1.0) Aspartate Amino Transf (AST/SGOT) 16 U/L (15-37) Alanine Aminotransferase (ALT/SGPT) 22 U/L (14-59) Alkaline Phosphatase 70 U/L (46-116) Total Protein 6.9 g/dL (6.4-8.2) Albumin 3.5 g/dL (3.4-5.0) Albumin/Globulin Ratio 1.0 (1.0-1.7) Lipase 99 U/L (73-393) Images Images CT scan of abdomen and pelvis are reviewed Assessment/Plan Assessment/Plan chronic recurrent ventral incisional hernias obesity D/W Anastasiia that her hernia presents a difficult management challenge and I feel she would be better served with an elective repair with component separation. I explained that I would take her to surgery today and try to repair the hernias but the success rate would be low given her history. She prefers not to have surgery at this time if avoidable, and based on her exam, CT findings (no bowel in hernias, some inflammation of the hernia sac), and labs I feel expectant treatment is an option. Toward that end I will start on a full liquid diet, and if tolerated could be released to home from my standpoint to follow up with her PCP Dr Daley and hernia clinic at [facility]. Will check later today for any change in status Thanks for consult SUE JC MD Jun 11, 2018 09:50
--- NOTE | 2018-06-11 10:31 | PDOC3 ---
Discharge Summary Visit Information Date of Admission: Jun 10, 2018 Date of Discharge: Jun 11, 2018 Admitting Diagnosis: Incarcerated ventral hernia Final Diagnosis Incarcerated ventral hernia Brief Hospital Course Allergies Allergies Coded Allergies Type Severity Reaction Last Updated Verified Penicillins Allergy Severe Anaphylaxis 06/11/18 Yes escitalopram Allergy Intermediate 04/08/17 Yes tramadol Allergy Intermediate Rash 06/11/18 Yes bupropion Adverse Reaction Severe 06/11/18 Yes fluoxetine Adverse Reaction Intermediate 06/11/18 Yes Vital Signs Vital Signs Date Time Temp Pulse Resp B/P (MAP) Pulse Ox O2 Delivery O2 Flow Rate FiO2 06/11/18 07:00 98.8 77 18 125/74 (91) 100 Room Air 98.8 Lab Results Laboratory Tests Test 06/10/18 18:55 06/10/18 19:00 06/11/18 05:15 Urine Collection Type Unknown Urine Color Yellow Urine Clarity Clear Urine pH 6.5 Urine Specific [place] 1.025 Urine Protein Negative mg/dL (NEG-TRACE) Urine Glucose (UA) Negative mg/dL (NEG) Urine Ketones (Stick) Negative mg/dL (NEG) Urine Blood Negative (NEG) Urine Nitrite Positive (NEG) Urine Bilirubin Negative (NEG) Urine Urobilinogen Dipstick 1.0 mg/dL (0.2 mg/dL) Urine Leukocyte Esterase Negative (NEG) Urine RBC Occ /HPF (0-2) Urine WBC Occ /HPF (0-4) Urine Squamous Epithelial Cells Mod /LPF Urine Bacteria Many /HPF (0-FEW) White Blood Count 9.1 x10^3/uL (4.0-11.0) 8.1 x10^3/uL (4.0-11.0) Red Blood Count 4.00 x10^6/uL (3.50-5.40) 3.72 x10^6/uL (3.50-5.40) Hemoglobin 12.4 g/dL (12.0-15.5) 11.5 g/dL (12.0-15.5) Hematocrit 36.9 % (36.0-47.0) 34.2 % (36.0-47.0) Mean Corpuscular Volume 92 fL (79-100) 92 fL (79-100) Mean Corpuscular Hemoglobin 31 pg (25-35) 31 pg (25-35) Mean Corpuscular Hemoglobin Concent 34 g/dL (31-37) 34 g/dL (31-37) Red Cell Distribution Width 13.9 % (11.5-14.5) 13.8 % (11.5-14.5) Platelet Count 300 x10^3/uL (140-400) 252 x10^3/uL (140-400) Neutrophils (%) (Auto) 60 % (31-73) 59 % (31-73) Lymphocytes (%) (Auto) 33 % (24-48) 33 % (24-48) Monocytes (%) (Auto) 6 % (0-9) 6 % (0-9) Eosinophils (%) (Auto) 1 % (0-3) 2 % (0-3) Basophils (%) (Auto) 1 % (0-3) 1 % (0-3) Neutrophils # (Auto) 5.4 x10^3uL (1.8-7.7) 4.8 x10^3uL (1.8-7.7) Lymphocytes # (Auto) 3.0 x10^3/uL (1.0-4.8) 2.7 x10^3/uL (1.0-4.8) Monocytes # (Auto) 0.5 x10^3/uL (0.0-1.1) 0.5 x10^3/uL (0.0-1.1) Eosinophils # (Auto) 0.1 x10^3/uL (0.0-0.7) 0.1 x10^3/uL (0.0-0.7) Basophils # (Auto) 0.0 x10^3/uL (0.0-0.2) 0.1 x10^3/uL (0.0-0.2) Sodium Level 141 mmol/L (136-145) Potassium Level 3.8 mmol/L (3.5-5.1) Chloride Level 105 mmol/L (98-107) Carbon Dioxide Level 26 mmol/L (21-32) Anion Gap 10 (6-14) Blood Urea Nitrogen 14 mg/dL (7-20) Creatinine 0.8 mg/dL (0.6-1.0) Estimated GFR (Cockcroft-Gault) 78.7 BUN/Creatinine Ratio 18 (6-20) Glucose Level 153 mg/dL (70-99) Calcium Level 8.8 mg/dL (8.5-10.1) Magnesium Level 1.9 mg/dL (1.8-2.4) Total Bilirubin 0.4 mg/dL (0.2-1.0) Aspartate Amino Transf (AST/SGOT) 16 U/L (15-37) Alanine Aminotransferase (ALT/SGPT) 22 U/L (14-59) Alkaline Phosphatase 70 U/L (46-116) Total Protein 6.9 g/dL (6.4-8.2) Albumin 3.5 g/dL (3.4-5.0) Albumin/Globulin Ratio 1.0 (1.0-1.7) Lipase 99 U/L (73-393) Laboratory Tests Test 06/10/18 18:55 06/10/18 19:00 06/11/18 05:15 Urine Collection Type Unknown Urine Color Yellow Urine Clarity Clear Urine pH 6.5 Urine Specific [place] 1.025 Urine Protein Negative mg/dL (NEG-TRACE) Urine Glucose (UA) Negative mg/dL (NEG) Urine Ketones (Stick) Negative mg/dL (NEG) Urine Blood Negative (NEG) Urine Nitrite Positive (NEG) Urine Bilirubin Negative (NEG) Urine Urobilinogen Dipstick 1.0 mg/dL (0.2 mg/dL) Urine Leukocyte Esterase Negative (NEG) Urine RBC Occ /HPF (0-2) Urine WBC Occ /HPF (0-4) Urine Squamous Epithelial Cells Mod /LPF Urine Bacteria Many /HPF (0-FEW) White Blood Count 9.1 x10^3/uL (4.0-11.0) 8.1 x10^3/uL (4.0-11.0) Red Blood Count 4.00 x10^6/uL (3.50-5.40) 3.72 x10^6/uL (3.50-5.40) Hemoglobin 12.4 g/dL (12.0-15.5) 11.5 g/dL (12.0-15.5) Hematocrit 36.9 % (36.0-47.0) 34.2 % (36.0-47.0) Mean Corpuscular Volume 92 fL (79-100) 92 fL (79-100) Mean Corpuscular Hemoglobin 31 pg (25-35) 31 pg (25-35) Mean Corpuscular Hemoglobin Concent 34 g/dL (31-37) 34 g/dL (31-37) Red Cell Distribution Width 13.9 % (11.5-14.5) 13.8 % (11.5-14.5) Platelet Count 300 x10^3/uL (140-400) 252 x10^3/uL (140-400) Neutrophils (%) (Auto) 60 % (31-73) 59 % (31-73) Lymphocytes (%) (Auto) 33 % (24-48) 33 % (24-48) Monocytes (%) (Auto) 6 % (0-9) 6 % (0-9) Eosinophils (%) (Auto) 1 % (0-3) 2 % (0-3) Basophils (%) (Auto) 1 % (0-3) 1 % (0-3) Neutrophils # (Auto) 5.4 x10^3uL (1.8-7.7) 4.8 x10^3uL (1.8-7.7) Lymphocytes # (Auto) 3.0 x10^3/uL (1.0-4.8) 2.7 x10^3/uL (1.0-4.8) Monocytes # (Auto) 0.5 x10^3/uL (0.0-1.1) 0.5 x10^3/uL (0.0-1.1) Eosinophils # (Auto) 0.1 x10^3/uL (0.0-0.7) 0.1 x10^3/uL (0.0-0.7) Basophils # (Auto) 0.0 x10^3/uL (0.0-0.2) 0.1 x10^3/uL (0.0-0.2) Sodium Level 141 mmol/L (136-145) Potassium Level 3.8 mmol/L (3.5-5.1) Chloride Level 105 mmol/L (98-107) Carbon Dioxide Level 26 mmol/L (21-32) Anion Gap 10 (6-14) Blood Urea Nitrogen 14 mg/dL (7-20) Creatinine 0.8 mg/dL (0.6-1.0) Estimated GFR (Cockcroft-Gault) 78.7 BUN/Creatinine Ratio 18 (6-20) Glucose Level 153 mg/dL (70-99) Calcium Level 8.8 mg/dL (8.5-10.1) Magnesium Level 1.9 mg/dL (1.8-2.4) Total Bilirubin 0.4 mg/dL (0.2-1.0) Aspartate Amino Transf (AST/SGOT) 16 U/L (15-37) Alanine Aminotransferase (ALT/SGPT) 22 U/L (14-59) Alkaline Phosphatase 70 U/L (46-116) Total Protein 6.9 g/dL (6.4-8.2) Albumin 3.5 g/dL (3.4-5.0) Albumin/Globulin Ratio 1.0 (1.0-1.7) Lipase 99 U/L (73-393) Brief Hospital Course Anastasiia is a 42 yo female with PMHx of morbid obesity s/p gastric bypass, fibromyalgia, bipolar disorder with multiple previous abdominal surgeries who presented to the ED last night, 06/10/18 with intractable pain in her long standing ventral incisional hernia that was not reducible in the ED. She had accompanying nausea and could not hold food down, required IV nausea and pain medication initially. She feels better this AM after manual hernia reduction by general surgery, feels back to her baseline. She tells me her (in the recliner) is frustrated, and he does share his frustration with the medical system. 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 Her pain is 3/10 currently and she is asking for diet and to be discharged since her hernia has been manually reduced by surgery. She will be discharged with f/u with outpatient surgery, referred to PT, weight loss, and [facility] for her possible elective surgery A/P: Intractable abdominal pain with nausea and vomiting - was unable to take PO or control her pain at home, improved with IV over the first 24 hours and manual reduction of hernia by surgery bedside has temporized while she awaits ultimate treatment at [facility] after her weight loss Incarcerated ventral hernia - thankfully was reduced bedside currently Morbid obesity s/p gastric bypass - has been advised an additional 20 pounds weight loss. I have recommend aquatic therapy outpatient for her Fibromyalgia and abdominal wall weakness and Liraglutide, contrave (does have h/o problems with wellbutrin), topiramate and even metformin in conjunction with a graded exercise program and dietary modification to mediterranean style diet, portion control Fibromyalgia - cont gabapentin, recommended to get off opioids, she actually rarely take the hydrocodone Bipolar disorder - states she is not currently medicated. A weight neutral med like geodon or even lithium may help mood stabilize so that she can be more functional. She will cont psych f/u Multiple previous abdominal surgeries - has f/u at [facility] and [facility] FEN - Full liquid diet PPX - SCDs FULL CODE Inpatient as she was unable to take PO and required IV pain medications. Surprisingly, her hernia was able to be reduced bedside and she wishes for discharge. Discharge Information Condition at Discharge: Improved Follow Up: Weeks (2) Disposition/Orders: D/C to Home Scheduled Buspirone Hcl (Buspirone Hcl) 10 Mg Tablet, 7.5 MG PO BID for bipolar, (Reported ) Entered as Reported by: INA HALE on 06/11/18158 Last Action: New Order on 06/11/18158 by INA HALE Cyclobenzaprine Hcl (Cyclobenzaprine Hcl) 5 Mg Tablet, 1 TAB PO TID, #30 ( Reported) Entered as Reported by: CARTER OLIVARES on 06/17/15 1323 Docusate Sodium (Colace) 100 Mg Capsule, 1 CAP PO BID, #30 (Reported) Entered as Reported by: CARTER OLIVARES on 06/17/15 1323 Gabapentin (Gabapentin) 800 Mg Tablet, 800 MG PO TID, (Reported) Entered as Reported by: MARTIN SMITH on 12/19/14 1049 Pantoprazole Sodium (Protonix) 40 Mg Granpkt.dr, 40 MG PO DAILY for gastric bypass, (Reported) Entered as Reported by: INA HALE on 06/11/18158 Last Action: New Order on 06/11/18158 by INA HALE Polyethylene Glycol 3350 (Miralax) 17 Gm Powd.pack, 1 PACKET PO DAILY, #30 Ref 3 (Reported) Entered as Reported by: MARTIN SMITH on 12/19/14 1049 Scheduled PRN Hydrocodone Bit/Acetaminophen (Hydrocodone-Apap 5-325 ) 1 Each Tablet, 1 TAB PO PRN Q6HRS PRN for PAIN, Ref 0 (Reported) Entered as Reported by: YARELIS DOWNEY on 03/02/17944 Discontinued Medications Esomeprazole Magnesium (Nexium Capsule) 40 Mg Capsule.dr, 40 MG PO DAILYAC, #30 Ref 0 (Reported) Entered as Reported by: MARTIN SMITH on 12/19/14 104 Last Action: Discontinued on 06/11/18 0159 by INA HALE Pantoprazole Sodium (Protonix) 20 Mg Tablet., 1 TAB PO DAILY, #30 (Reported) Discontinued Reason: Prescription changed Entered as Reported by: YARELIS DOWNEY on 03/02/17944 HUMAIRA OSEGUERA MD Jun 11, 2018 10:31
--- NOTE | 2018-06-11 10:35 | NUR ---
Pt was given dc packet. No questions asked. Pt is to f/u with primary healthcare network consultant and already has apportionment set up. No rx given or needed. VSS. Pt ambulated to ER exit accompanied with spouse and NA at 1035.
== END 2018-06-11 10:33 | disposition home or self-care (01) ==
LOC: ER 17:47 → 4 NORTH 22:40
PROVIDERS: ADMIT Internal Medicine; ATTEND Internal Medicine
DX: K43.6 Other and unspecified ventral hernia with obstruction, without gangrene (principal); E66.01 Morbid (severe) obesity due to excess calories; M79.7 Fibromyalgia; F31.9 Bipolar disorder, unspecified; Z98.84 Bariatric surgery status; Z81.8 Family history of other mental and behavioral disorders; Z82.49 Family history of ischemic heart disease and other diseases of the circulatory system; R53.1 Weakness; F41.9 Anxiety disorder, unspecified; F32.9 Major depressive disorder, single episode, unspecified; N80.9 Endometriosis, unspecified; F90.9 Attention-deficit hyperactivity disorder, unspecified type; F43.10 Post-traumatic stress disorder, unspecified; Z90.710 Acquired absence of both cervix and uterus; K43.9 Ventral hernia without obstruction or gangrene
CPT/HCPCS: 36415; 74177; 80053; 81001; 83690; 83735; 85025; 87086; 96374; 96375; 96376; 99284; G0378; J0780; J2270; J2405; J3010; J7030; Q9967; 87186; G0379

== ENCOUNTER → 2021-05-06 | Outpatient (CLI) | payer OTHER ==
[2020-08-08 13:31] VITALS: BP 115/71
[~2021-05-06] MED LIST changes: +ACET500T68 PO; +BUSP10TA PO; +CETI10TA16 PO; +DEXT20TA2 PO; +LAMO150T3 PO; +LINZESS145 MCG PO; +LISI5TAB15 PO; +METH10TA4 PO; +PANT40GR PO; +PANT40TA77 PO; +SERT50TA PO
--- NOTE | 2021-05-06 12:36 | PDOC1 ---
INITIAL PAIN CONSULT DATE OF SERVICE: DOS: DATE: 05/06/21 TIME: 12:26 CHIEF COMPLAINT: Chief Complaint: Abdominal pain left upper and lower quadrants HISTORY OF PRESENT ILLNESS: 45-year-old female presents with history of pain in the left side of the abdomen the upper and lower quadrants getting worse for the past 6 weeks or so without any specific injury or accident at that time but having significant pain in the upper quadrant as well as the lower quadrant is very tender also some pain radiating to the back in the low thoracic and entire lumbar distribution on the left side patient reports the pain is most noticeable in the left lower quadrant throbbing stabbing intermittent intensity change during the day with activity worse with rotation bending stooping standing for prolonged periods wakes her up sleep occasionally but not every night patient reports it does not affect her bowel or bladder and does affect her ability to walk, but is exacerbated by walking. Patient describes her pain as throbbing and cramping and aching in the back as well also radiating into the left shoulder blade occasionally. Patient rates her disability rating 0-10 10 me the worst is a 7 family home responsibilities social activity 8 with recreation 6 with social behavior self- care and life support activities. Patient is been taking Tylenol which does not specifically decrease the pain she is not a other therapy at this time or treatm ent she is taking gabapentin 800 mg 3 times daily for fibromyalgia but is not helped the abdominal pain. Patient had CT scan abdomen and pelvis which we reviewed with her on her visit today. Patient has had ventral hernia repair also cholecystectomy gastric bypass abdominoplasty and a partial hysterectomy. PAST MEDICAL HISTORY: PMH: Shortness of breath, depression, fibromyalgia, anemia PREVIOUS SURGERIES: Past Surgical Hx: Abdominal hernia repairs, ventral hernia repair, cholecystectomy, gastric bypass, abdominoplasty, partial hysterectomy, hemorrhoidectomy CURRENT MEDICATIONS: Current Meds: Active Scripts Medications Dose Route/Sig Max Daily Dose Days Date Category Acetaminophen 500 Mg Tablet 500 Mg PO PRN PRN 05/06/21 Reported Linzess (Linaclotide) 145 Mcg Capsule 145 Mcg PO DAILY07 05/06/21 Reported Cetirizine Hcl 10 Mg Tablet 1 Tab PO DAILY 05/06/21 Reported Ritalin (Methylphenidate Hcl) 10 Mg Tablet 1 Tab PO DAILY 05/06/21 Reported Adderall 20 Mg Tablet (Dextroamphetamine/Amphetamine) 20 Mg Tablet 1 Tab PO DAILY MDD 1 Tablet(s) 5 2/1/22 Reported Zoloft (Sertraline Hcl) 50 Mg Tablet 1 Tab PO DAILY 05/06/21 Reported Lamictal (Lamotrigine) 150 Mg Tablet 1 Tab PO DAILY 05/06/21 Reported Lisinopril 5 Mg Tablet Unknown Dose PO DAILY 05/06/21 Reported Pantoprazole Sodium (Pantoprazole Sodium) 40 Mg Tablet.dr 20 Mg PO DAILYAC 05/06/21 Reported Gabapentin 800 Mg Tablet 800 Mg PO TID 12/19/14 Reported ALLERGIES; Allergies: Coded Allergies: Penicillins (Verified Allergy, Severe, Anaphylaxis, 08/08/20) escitalopram (Verified Allergy, Intermediate, 08/08/20) tramadol (Verified Allergy, Intermediate, Rash, 08/08/20) bupropion (Verified Adverse Reaction, Severe, 08/08/20) Confusion fluoxetine (Verified Adverse Reaction, Intermediate, 08/08/20) confusion, aggression FAMILY HISTORY: Family Hx: Diabetes and cancer SOCIAL HISTORY: Social Hx: Patient drinks alcohol about every other month does not smoke not use any illegal illicit or recreational drugs is lives with her spouse has 1 child at home lives locally in [place], [place] REVIEW OF SYSTEMS: ROS: Positive for those items mentioned in history of present illness, all systems are reviewed, otherwise negative ,and are complete full and well-documented on patient's chart. PHYSICAL EXAM: VS: Blood pressure is 136/86 pulse 85 respirations 18 temperature is 98.6 F height is 5 feet 2 inches weight 209 pounds. PE: PHYSICAL EXAMINATION: GENERAL: The patient is awake, alert, oriented, appropriate, very pleasant in demeanor, patient accompanied by her spouse. HEENT: Shows normocephalic, atraumatic. Extraocular movements are intact and symmetrical. Oral cavity: Mucous membranes moist and pink. Dentition is intact. NECK: Shows anterior throat supple without palpable lymphadenopathy noted. Swallow reflex symmetrical. CHEST: Shows normal on inspection. Breath sounds are clear bilaterally, distant but no rales or rhonchi. HEART: Shows S1, S2 clear. No murmurs auscultated. ABDOMEN: Soft, nontender, nondistended, obese. No palpable organomegaly is noted. No rebound or guarding demonstrated. Well-healed surgical scar in the midline as well as laparoscopic scars in the bilateral upper quadrants, also well-healed. With palpation shows significant tenderness in the upper quadrant as well as the lower quadrant and tender with palpation to the midline more significantly in the lower quadrant and upper. Right side is nontender. BACK: Shows spine grossly in the midline. Normal-appearing cervical lordotic curvature. There is slightly increased thoracic kyphosis, some minor flattening of the lumbar lordotic curvature. Lumbar paraspinous muscles show symmetrical on inspection, on palpation shows some moderate tenderness diffusely. Left- sided lower thoracic paraspinous posterior and lumbar paraspinous posterior upper middle and lower shows firm tenderness with palpation without specific trigger points and without radiation but very tender with palpation right side is nontender. EXTREMITIES: Lower extremities show deep tendon reflexes 2+ in the patellar and tendo calcaneus tendons. Motor exam is 5 on a scale of 5 with right dorsiflexion, extension, quadriceps and hamstring flexion and 5/5 on the left. Peripheral pulses are 1+ posterior tibial. No peripheral edema is noted bilaterally. Lower extremities are warm and dry to touch, equal in color and appearance. SKIN: Shows warm and dry, good turgor. No edema. No sores, rashes or bruising throughout. IMPRESSION: Impression: 45-year-old female with approximate 6-week history increasing abdominal pain left side upper and lower quadrant Status post multiple abdominal surgeries including hernia repairs and gastric bypass and cholecystectomy History of fibromyalgia Plan: Options were discussed with the patient including serve medical managements medical therapies and interventional techniques. Patient would like to pursue interventional techniques. We discussed a transverses abdominis plane block on the left side ease descriptions as well as anatomical models to describe the procedure. Patient will wait for preauthorization with her insurance provider and once approved we will have her return for left-sided transversus abdominis plane block. In the meantime, patient will continue with stretching strength exercises and oral analgesics as currently. EVERARDO ALSTON MD May 06, 2021 12:36
== END | disposition home or self-care (01) ==
LOC: PNCL 11:24
PROVIDERS: ATTEND Anesthesiology
DX: R10.12 Left upper quadrant pain (principal); R10.32 Left lower quadrant pain; F32.9 Major depressive disorder, single episode, unspecified; D64.9 Anemia, unspecified; E66.9 Obesity, unspecified; K21.9 Gastro-esophageal reflux disease without esophagitis; F41.9 Anxiety disorder, unspecified; Z90.49 Acquired absence of other specified parts of digestive tract; Z90.710 Acquired absence of both cervix and uterus; Z98.890 Other specified postprocedural states; Z87.891 Personal history of nicotine dependence; Z72.89 Other problems related to lifestyle; Z88.0 Allergy status to penicillin; Z88.8 Allergy status to other drugs, medicaments and biological substances; Z83.3 Family history of diabetes mellitus
CPT/HCPCS: 99205; G0463

== ENCOUNTER → 2021-05-19 | Outpatient (CLI) | payer OTHER ==
[2020-08-08 13:31] VITALS: BP 115/71
[~2021-05-19] MED LIST changes: +BUPIVACAINE MPF 0.25% 10 ML VIAL. ONE; +DEXAMETHASONE PRES.FREE 10 MG/ML VIAL. ONE
--- NOTE | 2021-05-19 09:18 | PDOC ---
Progress Note - Pain Clinic Date of Service: DOS: DATE: 05/19/21 TIME: 09:11 Diagnosis: Dx: Chronic abdominal pain Chronic postoperative pain History or Present Illness: HPI: 45-year-old female returns for follow-up status post evaluation and preauthorization for transversus abdominis plane block on the left. Patient reports no significant pain on the left side and reports that it is now travelin g into the left shoulder as well on occasion but is not present daily patient reports he is noticing pain in the left shoulder girdle not with motion of the arm or shoulder but radiating pain from the upper abdomen into the back and into the shoulder on the left side which is new. Patient reports is a 9 on scale 10 is worse over the past week 7 on average to its least describes the pain in the abdomen is aching and tight cramping can be severe and constant as well as unbearable on the left side in the abdominal wall but both upper and lower quadrants. Patient reports no new bowel or bladder incontinence no loss of motor function but significant pain with changing positions difficulty with sleeping chest repositioning apply heat to her side to get back to sleep. Patient's left shoulder area appears to be myofascial in etiology, we discussed putting heat and stretching techniques to the left posterior shoulder to see if this may afford some relief. Physical Exam: VS: Blood pressure is 124/83 pulse 70 respirations 16 temperature is 98.2 F height is 5 feet 2 inches weight is 210 pounds PE: PHYSICAL EXAMINATION: GENERAL: The patient is awake, alert, oriented, appropriate, very pleasant in demeanor HEENT: Shows normocephalic, atraumatic. Extraocular movements are intact and symmetrical. Oral cavity: Mucous membranes moist and pink. Dentition is intact. NECK: Shows anterior throat supple without palpable lymphadenopathy noted. Swallow reflex symmetrical. CHEST: Shows normal on inspection. Breath sounds are clear bilaterally, no rales rhonchi wheezes auscultated. HEART: Shows S1, S2 clear. No murmurs auscultated. ABDOMEN: Soft, nontender, nondistended. No palpable organomegaly is noted. No rebound or guarding demonstrated. Significant tenderness with palpation in the upper quadrant of the left as well as the left lower quadrant with even moderate palpation pressure. No radiation is demonstrated. Again, well-healed surgical scars are again appreciated. BACK: Shows spine grossly in the midline. Normal-appearing cervical lordotic curvature. There is slightly increased thoracic kyphosis, some minor flattening of the lumbar lordotic curvature. Lumbar paraspinous muscles show symmetrical on inspection, on palpation shows some moderate tenderness diffusely throughout the upper, middle and lower distribution of the paraspinous muscles, but without specific trigger points, without radiation of pain. The patient has good rotational motion of the lumbar spine, both laterally as well as extension and flexion without significant difficulty. No tenderness over the spinous processes, sacrum or sacroiliac regions. SKIN: Shows warm and dry, good turgor. No edema. No sores, rashes or bruising throughout. Procedure: Procedure: Options discussed with the patient. Patient's chart reviews her current medication regimen updated current review of systems updated today as well. We will proceed with left-sided transverses abdominis plane block. Risk were discussed including but not limited to bleeding infection possibility of intravascular injection and sequelae spread of local anesthetic and numbness side effects of steroid medication and poor results regarding pain control. Patient understands and wished to proceed. Patient return to the clinic in approximately 2 weeks for follow-up, was counseled as to return appointment, activity level, and side effects to be aware of. Medication Injected: Med Injected: Patient in the supine position under sterile prep and drape patient's left abdominal wall was prepped and draped using 25-gauge needle was then injected in the left lower quadrant and periumbilical region with good popping sensation as needle was traversing through the myofascial layers with the needle, with negative aspiration prior to injection. A total of 6 cc of 0.25% bupivacaine was administered, and 10 mg dexamethasone. Patient tolerated procedure well had no complications. Condition at Discharge: Condition at Discharge: Condition at discharge is stable. Patient tolerated the procedure well had no complications. EVERARDO ALSTON MD May 19, 2021 09:17
--- NOTE | 2021-05-19 09:18 | PDOC4 ---
Procedure Note: ICD 10 Code: ICD 10 Code: R1 0.9 G8 9.18 Procedure Note: Patient was consented for left-sided transversus abdominis plane block. Risk discussed including but not limited to bleeding infection possibility of intravascular injection sequelae spread of local anesthetic and numbness side effects steroid medication and poor results regarding pain control. Patient understands and wished to proceed. Patient in the supine position under sterile prep and drape patient's left abdominal wall was prepped and draped using 25-gauge needle was then injected in the left lower quadrant and periumbilical region with good popping sensation as needle was traversing through the myofascial layers with the needle, with negative aspiration prior to injection. A total of 6 cc of 0.25% bupivacaine was administered, and 10 mg dexamethasone. Patient tolerated procedure well had no complications. EVERARDO ALSTON MD May 19, 2021 09:18
== END | disposition home or self-care (01) ==
LOC: PNCL 08:33
PROVIDERS: ATTEND Anesthesiology
DX: G89.29 Other chronic pain (principal); R10.9 Unspecified abdominal pain; I10 Essential (primary) hypertension; E66.9 Obesity, unspecified; K21.9 Gastro-esophageal reflux disease without esophagitis; F41.9 Anxiety disorder, unspecified; F32.9 Major depressive disorder, single episode, unspecified; Z98.51 Tubal ligation status; Z90.49 Acquired absence of other specified parts of digestive tract; Z90.710 Acquired absence of both cervix and uterus; Z98.890 Other specified postprocedural states; Z79.899 Other long term (current) drug therapy; Z87.891 Personal history of nicotine dependence; Z88.0 Allergy status to penicillin; Z88.8 Allergy status to other drugs, medicaments and biological substances; Z72.89 Other problems related to lifestyle
CPT/HCPCS: 64486; J1100; J3490